=== PATIENT | male | born 1945 | race Caucasian/White ===

== ENCOUNTER 2022-10-15 12:51 | Outpatient (CLI) | payer MEDICARE, OTHER, SELFPAY ==
--- NOTE | 2022-10-15 14:00 | CRLHL7_ITS ---
For Patients: As a result of the Century Cures Act, medical imaging exams and procedure reports are released immediately into your electronic medical record. You may view this report before your referring provider. If you have questions, please contact your health care provider. INDICATION: Leg pain and swelling. TECHNIQUE: Ultrasound venous duplex lower right extremity. Compression venous exam was performed using zamudio-scale, color Doppler, and spectral Doppler analysis. COMPARISON: None. FINDINGS: Deep veins: Sonographic imaging demonstrates the right common femoral, deep femoral, superficial femoral, popliteal, posterior tibial and the contralateral right common femoral veins to be fully compressible with normal color Doppler blood flow. Superficial veins: Greater saphenous vein is fully compressible. Incidental 5.0 centimeter fluid collection in the popliteal fossa. Additional 7.5 centimeter fluid collection in the upper medial calf. IMPRESSION: No right lower extremity DVT. Incidental 5.0 centimeter fluid collection in the popliteal fossa. Additional 7.5 centimeter fluid collection in the upper medial calf. Dictated by Charan Venegas MD @ 10/15/2022 2:09:25 PM (Electronically Signed)
== END 2022-10-15 12:52 | disposition home or self-care (01) ==
PROVIDERS: PCP Family Medicine; Visit Provider Family Medicine
DX: M79.661 Pain in right lower leg (principal); R22.41 Localized swelling, mass and lump, right lower limb
CPT/HCPCS: 93971